=== PATIENT | female | born 2000 | race African-American/Black ===

== ENCOUNTER 2020-12-05 21:11 | Emergency (ER) | payer SELFPAY ==
[~2020-12-05] VITALS: Ht 157.5 cm; Wt 58.4 kg
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
[2020-12-05 22:04] LABS: BILIRUBIN,URINE NEGATIVE (NEG); CLARITY,URINE CLEAR; COLOR,URINE YELLOW; NITRITE,URINE NEGATIVE (NEG); PROTEIN,URINE 30 mg/dL (NEG-TRACE)
[2020-12-05] MEDS: NEOMY/BACITR/POLYMYXIN OINT PACKET. TP ONE (22:04)
[2020-12-05] MEDS: HYDROcodone/APAP 5/325MG 1 TAB TABLET PO ONE (22:06)
[2020-12-05 22:14] LABS: BACTERIA,URINE FEW /HPF (0-FEW); WBC,URINE 0 /HPF (0-4)
--- NOTE | 2020-12-05 22:30 | RAD ---
Left knee 3 views, pelvis one view. HISTORY: Pain Left knee 3 views were taken of the left knee. There is not evidence of a fracture or joint effusion or osseous abnormality. Pelvis Single view was taken of the pelvis. There is not evidence of an acute fracture or osseous abnormalit y. Hips appear unremarkable. IMPRESSION: 1. Negative pelvis. 2. Negative left knee. Electronically signed by: Jasper Montero MD (12/05/2020 10:28 PM) [facility]
--- NOTE | 2020-12-05 22:30 | RAD ---
Left knee 3 views, pelvis one view. HISTORY: Pain Left knee 3 views were taken of the left knee. There is not evidence of a fracture or joint effusion or osseous abnormality. Pelvis Single view was taken of the pelvis. There is not evidence of an acute fracture or osseous abnormalit y. Hips appear unremarkable. IMPRESSION: 1. Negative pelvis. 2. Negative left knee. Electronically signed by: Jasper Montero MD (12/05/2020 10:28 PM) [facility]
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
[2020-12-05] MEDS ORDERED: FLUORESCEIN OPHTH TEST STRIP. ONE (23:14)
[2020-12-05] MEDS ORDERED: TETRACAINE 0.5% OPHTH SOLUTION 4ML BOTTLE. ONE (23:14)
[2020-12-05 23:19] VITALS: BP 126/65
[2020-12-05] MEDS ORDERED: IBUP-1007 PO (23:49)
[2020-12-05] MEDS ORDERED: CYCL10TA2 PO (23:49)
== END 2020-12-06 00:06 | disposition home or self-care (01) ==
LOC: ER 21:11
DX: S00.83XA Contusion of other part of head, initial encounter (principal); S60.418A Abrasion of other finger, initial encounter; M25.562 Pain in left knee; M25.552 Pain in left hip; R07.2 Precordial pain; M54.2 Cervicalgia; R19.7 Diarrhea, unspecified; V43.62XA Car passenger injured in collision with other type car in traffic accident, initial encounter; Y92.488 Other paved roadways as the place of occurrence of the external cause; Y93.89 Activity, other specified; Y99.8 Other external cause status
CPT/HCPCS: 70450; 71046; 72125; 72170; 73562; 81001; 81025; 99285-25

== ENCOUNTER 2021-05-26 20:08 | Emergency (ER) | payer OTHER ==
[~2021-05-26] VITALS: Ht 154.9 cm; Wt 58.4 kg
[~2021-05-26 20:08] MED LIST: CYCL10TA2 PO; IBUP-1007 PO
[2021-05-26 20:30] VITALS: BP 117/56
--- NOTE | 2021-05-26 20:54 | PHYS DOC ---
Past Medical History Past Medical History: No Pertinent History Past Surgical History: No Surgical History Smoking Status: Never Smoker Alcohol Use: None General Adult EDM: Chief Complaint: VAGINAL BLEEDING HPI: HPI: Patient is a 20 year old female who is reportedly 9w0d presents after passing a large vaginal blood clot yesterday morning. No further bleeding noted. No cramping/contractions. discharge. No fever/chills. Had a miscarriage in February. LMP 03/24 + test on 04/23 Blood type A+ ED visit on 05/04 at [facility]: Hcg 11,760 Pelvis US IMPRESSION: 1. Single intrauterine gestation measuring 5 weeks 5 days. No pole is yet detectable. Correlate with quantitative beta hCG to determine if this is appropriate. Short interval follow-up. 2. A mass in the left ovary is most likely a corpus luteum. No living adnexal ectopic is visualized. Again, attention on further follow-up is recommended. Review of Systems: Review of Systems: Constitutional: Denies fever or chills. [] Eyes: Denies change in visual acuity. [] HENT: Denies nasal congestion or sore throat. [] Respiratory: Denies cough or shortness of breath. [] Cardiovascular: Denies chest pain or edema. [] GI: Denies abdominal pain, nausea, vomiting, bloody stools or diarrhea. [] : reports 1 passed vaginal blood clot. [] Musculoskeletal: Denies back pain or joint pain. [] Integument: Denies rash. [] Neurologic: Denies headache, focal weakness or sensory changes. [] Endocrine: Denies polyuria or polydipsia. [] Lymphatic: Denies swollen glands. [] Psychiatric: Denies depression or anxiety. [] Heart Score: C/O Chest Pain: No Risk Factors: Risk Factors: DM, Current or recent (<one month) smoker, HTN, HLP, family his tory of CAD, obesity. Risk Scores: Score 0 - 3: 2.5% MACE over next 6 weeks - Discharge Home Score 4 - 6: 20.3% MACE over next 6 weeks - Admit for Clinical Observation Score 7 - 10: 72.7% MACE over next 6 weeks - Early Invasive Strategies Allergies: Allergies: Allergies Coded Allergies Type Severity Reaction Last Updated Verified No Known Drug Allergies 12/05/20 No Physical Exam: PE: Constitutional: Well developed, well nourished, no acute distress, non-toxic appearance. [] HENT: Normocephalic, atraumatic, bilateral external ears normal, oropharynx moist, no oral exudates, nose normal. [] Eyes: PERRLA, EOMI, conjunctiva normal, no discharge. [] Neck: Normal range of motion, no tenderness, supple, no stridor. [] Cardiovascular:Heart rate regular rhythm, no murmur [] Lungs & Thorax: Bilateral breath sounds clear to auscultation [] Abdomen: Bowel sounds normal, soft, no tenderness, no masses, no pulsatile masses. [] Skin: Warm, dry, no erythema, no rash. [] Back: No tenderness, no CVA tenderness. [] Extremities: No tenderness, no cyanosis, no clubbing, ROM intact, no edema. [] Neurologic: Alert and oriented X 3, normal motor function, normal sensory functi on, no focal deficits noted. [] Psychologic: Affect normal, judgement normal, mood normal. [] Current Patient Data: Labs: Laboratory Tests Test 05/26/21 20:23 POC Urine HCG, Qualitative Hcg positive (Negative) EKG: EKG: [] Radiology/Procedures: Radiology/Procedures: [] Impression: [facility] [address] [place] [address] IMAGING REPORT Signed PATIENT: JENNA ARAUZ ACCOUNT: [id number] : 2000 LOCATION: ER AGE: 20 SEX: F EXAM STATUS: REG ER ORD. PHYSICIAN: LAKSHMI AVILA MD REASON: 1st trimester bleeding PROCEDURE: OB TRANSVAG EXAMINATION: US OB TRANSVAGINAL INDICATION: 20 years, Female, vaginal bleeding. COMPARISON: None TECHNIQUE: Transvaginal ultrasound of the pelvis was performed with grayscale, spectral, and color doppler imaging. FINDINGS: Last menstrual period: 03/24/2021 Expected delivery date based on last menstrual period: 12/29/2021 UTERUS: Position: Anteverted Measures: 11 x 7.9 x 6.6 cm. GESTATIONAL SAC: Intrauterine gestational sac with yolk sac and pole. [place]-Rump Length: 2.28 cm corresponds to 9 weeks and 0 days. Heart Rate: 163 bpm. Expected date of delivery based on ultrasound 12/29/2021 RIGHT OVARY/ADNEXA: Measures: 2.1 x 1.2 x 1.2 cm Right Ovarian Morphology: Unremarkable Right Ovarian Color And Spectral Doppler Flow: Normal LEFT OVARY/ADNEXA: Not visualized Fluid: No free fluid IMPRESSION Single live intrauterine with estimated gestational age based on crown-rump length is 9 weeks and 0 day. Electronically signed by: Ciro Purcell MD (05/26/2021 10:19 PM) [facility] DICTATED and SIGNED BY: CIRO PURCELL MD DATE: 05/26/21 [id number] 0 Course & Med Decision Making: Course & Med Decision Making Pertinent Labs and Imaging studies reviewed. (See chart for details) Patient is a 20-year-old female at approximately 9 weeks gestational age who presents after passing 1 large vaginal blood clot yesterday. She is concerned for miscarriage. She has had no further vaginal bleeding. On arrival is afebrile and hemodynamically stable. She had an ultrasound on 05/04 at an outside ED that showed a gestational sac without detectable pole and a beta quant of 11,760. Rh +. No need for RhoGam. No ongoing bleeding or vital instability. no need for blood counts. will check repeat pelvic US and beta quant to evaluate for evidence of miscarriage. 2051 Ultrasound shows appropriate growth and confirms IUP. This appears to be a threatened miscarriage. She does not have an OB so will make a referral. Return precautions discussed. [id number] Sirena Disclaimer: Sirena Disclaimer: This electronic medical record was generated, in whole or in part, using a voice recognition dictation system. Departure Departure Impression: Primary Impression: First trimester bleeding Disposition: HOME / SELF CARE / HOMELESS Condition: STABLE Referrals: NO PCP (PCP) NARINDER GUTIERRES MD Schedule follow-up appointment with her OB doctor, Dr. Gutierres. Additional Instructions: Your ultrasound and blood work was reassuring. There is still a chance that this could represent an early miscarriage, but there is no evidence of this right now. Please follow-up with Dr. Gutierres. Please call his office to schedule an appointment. Will be very important that she have an OB to follow-up with the rest of her . If you develop abdominal pain, recurrent bleeding, fever/chills, or other new/concerning symptoms please return to the emergency department for reevaluation. LAKSHMI AVILA MD May 26, 2021 20:53
--- NOTE | 2021-05-26 22:21 | RAD ---
EXAMINATION: US OB TRANSVAGINAL INDICATION: 20 years, Female, vaginal bleeding. COMPARISON: None TECHNIQUE: Transvaginal ultrasound of the pelvis was performed with grayscale, spectral, and color do ppler imaging. FINDINGS: Last menstrual period: 03/24/2021 Expected delivery date based on last menstrual period: 12/29/2021 UTERUS: Position: Anteverted Measures: 11 x 7.9 x 6.6 cm. GESTATIONAL SAC: Intrauterine gestational sac with yolk sac and pole. [place]-Rump Length: 2.28 cm corresponds to 9 weeks and 0 days. Heart Rate: 163 bpm. Expected date of delivery based on ultrasound 12/29/2021 RIGHT OVARY/ADNEXA: Measures: 2.1 x 1.2 x 1.2 cm Right Ovarian Morphology: Unremarkable Right Ovarian Color And Spectral Doppler Flow: Normal LEFT OVARY/ADNEXA: Not visualized Fluid: No free fluid IMPRESSION Single live intrauterine with estimated gestational age based on crown-rump length is 9 wee ks and 0 day. Electronically signed by: Luann Purcell MD (05/26/2021 10:19 PM) [facility]
[2021-05-26] MEDS ORDERED: ONDANSETRON ODT 4 MG TAB.RAPDIS. PO ONE (23:00)
== END 2021-05-26 22:45 | disposition home or self-care (01) ==
LOC: ER 20:08
DX: O46.91 Antepartum hemorrhage, unspecified, first trimester (principal); Z3A.09 9 weeks gestation of pregnancy
CPT/HCPCS: 36415; 76817; 81025; 84702; 99284-25

== ENCOUNTER 2021-08-13 17:32 | Observation (INO) | payer OTHER ==
[~2021-08-13 17:32] MED LIST changes: +CYCL10TA19 PO; -CYCL10TA2 PO
[2021-08-13] MEDS ORDERED: IV RINGERS,LACTATED 1000ML 1,000 ML IV SCH (18:00)
[2021-08-13 18:09] LABS: BILIRUBIN,URINE NEGATIVE (NEG); CLARITY,URINE CLEAR; COLOR,URINE YELLOW; NITRITE,URINE NEGATIVE (NEG); PH,URINE 6.5 (<5.0-8.0); PROTEIN,URINE NEGATIVE (NEG-TRACE)
[2021-08-13 18:10] LABS: AMNIO PT NEGATIVE
[2021-08-13 18:29] LABS: BACTERIA,URINE MODERATE /HPF (0-FEW)
[2021-08-13 18:30] LABS: RBC,URINE 0 /HPF (0-2)
--- NOTE | 2021-08-14 00:23 | RAD ---
EXAM: US OB TRANSVAGINAL. HISTORY: Assess cervical length. COMPARISON: None. FINDINGS: Limited transvaginal sonography was performed to assess cervical length. The cervix is clos ed and measures 3.4 cm. There is no evidence of placenta previa. IMPRESSION: 1. The cervix is closed and measures 3.4 cm. Electronically signed by: Aravind Arenas MD (08/14/2021 12:20 AM) [facility]
== END 2021-08-14 00:27 | disposition home or self-care (01) ==
LOC: 3 SO LND 17:32
PROVIDERS: ADMIT Obstetrics & Gynecology; ATTEND Obstetrics & Gynecology
DX: O62.9 Abnormality of forces of labor, unspecified (principal); O26.892 Other specified pregnancy related conditions, second trimester; R10.2 Pelvic and perineal pain; O42.912 Preterm premature rupture of membranes, unspecified as to length of time between rupture and onset of labor, second trimester; Z3A.20 20 weeks gestation of pregnancy; Z86.16 Personal history of COVID-19
CPT/HCPCS: 36415; 59025; 76817; 81001; 84112; 87086; G0378; G0379

== ENCOUNTER 2021-09-29 13:41 | Emergency (ER) | payer OTHER | END 2021-09-29 19:21 | disposition left against medical advice (07) | LOC: ER 13:41 | DX: U07.1 COVID-19 (principal); R10.9 Unspecified abdominal pain; R63.0 Anorexia; Z53.21 Procedure and treatment not carried out due to patient leaving prior to being seen by health care provider ==